=== PATIENT | male | born 1970 | race Caucasian/White ===

== ENCOUNTER 2023-12-11 07:00 | Outpatient (CLI) | payer OTHER, SELFPAY ==
--- NOTE | ~2023-12-11 | MR_ITS ---
MRI of the left calf CLINICAL HISTORY: Pain TECHNIQUE: Axial T1-weighted and STIR images, sagittal T1-weighted and STIR images, and coronal T1-we ighted and STIR images were acquired. FINDINGS: Bone marrow signals are unremarkable. No fracture, marrow edema, or osteomyelitis. No perio steal reaction. Visualized joint spaces are intact. No joint effusion evident. Visualized musculature demonstrates normal signal intensity. No muscle atrophy or edema identified. V isualized tendons appear intact. No soft tissue mass or fluid collection identified. No evidence for medial tibial stress syndrome. IMPRESSION: No significant abnormality seen. Reviewed, dictated and finalized at [facility].
== END 2023-12-11 07:01 ==
PROVIDERS: PCP Nurse Practitioner Family; Visit Provider Family Medicine Sports Medicine
DX: M79.662 Pain in left lower leg (principal); M25.572 Pain in left ankle and joints of left foot; M89.9 Disorder of bone, unspecified; M84.362A Stress fracture, left tibia, initial encounter for fracture; M76.60 Achilles tendinitis, unspecified leg
CPT/HCPCS: 73718